=== PATIENT | female | born 1985 ===

== ENCOUNTER 2022-11-17 16:00 | Outpatient (REF) | payer MEDICAID, SELFPAY ==
--- NOTE | 2022-11-17 16:00 | PAPFT_PTH ---
PATIENT: Mary Carmen Carter LOC: [facility] U#:[id number] AGE/SX: 37/F ROOM: RE11/17/[address]: Edmar Grewal : 1985 BED: DIS: 11/17/2022 SPEC #: [id number] RECD: 11/18/22 18:25 STATUS: ROMI REWm #: [id number] MIKAELA: 11/17/22 16:[address]: Edmar Grewal DEPT: [facility] Cytology RECD BY: Tracey Westbrook ENTERED: 11/18/22 18:25 SP TYPE: PAPFT OTHR DR: Cleveland Sheth Tissues: 1 - CX/ENDOCX FOR PAP SMEARS Procedures: PAP THIN PREP/[facility] Screening HPV DNA PROBE Comments: [id number] (CHLAMYDIA/GC)
[2022-11-19 14:41] LABS: Chlamydia Result Negative (Negative); GC Result Negative (Negative)
== END 2022-11-17 16:01 | disposition home or self-care (01) ==
LOC: LBN 16:00
PROVIDERS: Visit Provider Naturopath
DX: Z11.3 Encounter for screening for infections with a predominantly sexual mode of transmission (principal); Z12.4 Encounter for screening for malignant neoplasm of cervix
CPT/HCPCS: 87491; 87591; 88142; 87081; 87480; 87510; 87624; 87660

== ENCOUNTER 2023-06-01 11:36 | Outpatient (REF) | payer MEDICAID, SELFPAY ==
--- NOTE | 2023-06-01 14:30 | PAPFT_PTH ---
PATIENT: Mary Carmen Carter LOC: [facility] U#:[id number] AGE/SX: 37/F ROOM: RE06/01/[address]: Edmar Grewal : 1985 BED: DIS: 06/01/2023 SPEC #: [id number] RECD: 06/02/23 12:56 STATUS: ROMI REWm #: [id number] MIKAELA: 06/01/23 14:[address]: Edmar Grewal DEPT: [facility] Cytology RECD BY: Tracey Westbrook ENTERED: 06/02/23 12:56 SP TYPE: PAPFT OTHR DR: Unknown,Unknown Tissues: 1 - CX/ENDOCX FOR PAP SMEARS Procedures: PAP THIN PREP/[facility] Screening Comments: [id number]
== END 2023-06-01 11:37 | disposition home or self-care (01) ==
LOC: LBN 11:36
PROVIDERS: Referring Provider Naturopath; Visit Provider Naturopath
DX: N76.1 Subacute and chronic vaginitis (principal); Z12.4 Encounter for screening for malignant neoplasm of cervix
CPT/HCPCS: 88142; 87480; 87510; 87660

== ENCOUNTER 2023-08-24 20:41 | Outpatient (REF) | payer MEDICAID, SELFPAY | END 2023-08-24 20:42 | disposition home or self-care (01) | LOC: LBN 20:41 | PROVIDERS: Visit Provider Naturopath | DX: N76.1 Subacute and chronic vaginitis (principal) | CPT/HCPCS: 87480; 87510; 87660 ==

== ENCOUNTER 2024-09-13 22:39 | Outpatient (REF) | payer MEDICAID, SELFPAY ==
--- NOTE | 2024-09-13 11:30 | PAPFT_PTH ---
PATIENT: Mary Carmen Carter LOC: [facility] U#:[id number] AGE/SX: 39/F ROOM: RE09/13/[address]: Edmar Grewal : 1985 BED: DIS: 09/13/2024 SPEC #: [id number] RECD: 09/14/24 13:18 STATUS: ROMI REQ #: [id number] MIKAELA: 09/13/24 11:[address]: Edmar Grewal DEPT: [facility] Cytology RECD BY: Tracey Westbrook ENTERED: 09/14/24 13:18 SP TYPE: PAPFT OTHR DR: Unknown,Unknown Tissues: 1 - CX/ENDOCX FOR PAP SMEARS Procedures: PAP THIN PREP/[facility] Screening HPV DNA PROBE Comments: [id number] (HPV 16 & 18/45) (CHLAMYDIA/GC0
[2024-09-15 12:31] LABS: Chlamydia Result Negative (Negative); GC Result Negative (Negative)
== END 2024-09-13 22:40 | disposition home or self-care (01) ==
LOC: LBN 22:39
PROVIDERS: Visit Provider Naturopath
DX: Z12.4 Encounter for screening for malignant neoplasm of cervix (principal); B37.9 Candidiasis, unspecified
CPT/HCPCS: 87491; 87591; 88142; 87480; 87510; 87624; 87660